=== PATIENT | female | born 1955 | race Caucasian/White ===

== ENCOUNTER → 2017-01-24 | Outpatient (CLI) | payer OTHER ==
[2017-01-27 00:06] LABS: Lyme Disease IgG/IgM Antibodie <0.91 ISR (0.00-0.90); Lyme Disease IgM Ab Quantitati <0.80 index (0.00-0.79)
== END ==
LOC: M WUC 14:35
PROVIDERS: ATTEND Emergency Medicine
DX: M25.50 Pain in unspecified joint (principal)

== ENCOUNTER 2017-07-06 20:21 | Emergency (ER) | payer BC, OTHER ==
[~2017-07-06] VITALS: Ht 160 cm; Wt 116.0 kg
[2017-07-06 20:21] VITALS: BP 67/85
[2017-07-06] MEDS ORDERED: ESTR1CRE EC (20:42)
[2017-07-06] MEDS ORDERED: WELLTAB40 PO (20:42)
[2017-07-06] MEDS ORDERED: [UNRECOGNIZED DRUG - CODE] PO (20:42)
[2017-07-06] MEDS ORDERED: RITU10VLL IV (20:42)
[2017-07-06] MEDS ORDERED: FOLI1TAB4 PO (20:42)
[2017-07-06] MEDS ORDERED: RIZA10TA4 PO (20:42)
[2017-07-06] MEDS ORDERED: HYDR200T3 PO (20:42)
[2017-07-06] MEDS ORDERED: ESTR1MIS EC (20:42)
[2017-07-06] MEDS ORDERED: KEFL500C17 PO (21:30)
[2017-07-06] MEDS ORDERED: CEPHALEXIN 500 MG CAP PO ONE (21:30)
== END 2017-07-06 21:43 | disposition home or self-care (01) ==
LOC: M ED 20:21
DX: R21 Rash and other nonspecific skin eruption (principal); F33.9 Major depressive disorder, recurrent, unspecified; M35.00 Sjogren syndrome, unspecified; Z79.899 Other long term (current) drug therapy

== ENCOUNTER → 2019-03-24 | Outpatient (CLI) | payer BC, OTHER ==
[~2019-03-24] MED LIST: ESTR1CRE EC; ESTR1MIS EC; FOLI1TAB11 PO; HYDR200T3 PO; KEFL500C17 PO; RITU10VLL IV; RIZA10TA4 PO; WELLTAB40 PO; [UNRECOGNIZED DRUG - CODE] PO
[2019-03-24 12:10] LABS: BLOOD UREA NITROGEN 14 MG/DL (7-18); CALCIUM LEVEL 9.5 MG/DL (8.8-10.2); CARBON DIOXIDE LEVEL 29 MEQ/L (21-32); CHLORIDE LEVEL 110 MEQ/L (98-107); CREATININE FOR GFR 0.96 MG/DL (0.55-1.30); GLOMERULAR FILTRATION RATE > 60.0 (>45); GLUCOSE, FASTING 79 MG/DL (70-100); POTASSIUM SERUM 4.9 MEQ/L (3.5-5.1); SODIUM LEVEL 143 MEQ/L (136-145)
== END ==
LOC: M WUC 09:19
PROVIDERS: ATTEND Family Medicine
DX: L70.0 Acne vulgaris (principal)

== ENCOUNTER → 2019-07-17 | Outpatient (REF) | payer OTHER ==
[~2019-07-17] MED LIST changes: -RIZA10TA4 PO; +RIZA10TA58 PO
== END ==
LOC: M LAB REF 12:55
PROVIDERS: ATTEND Family Medicine
DX: N39.0 Urinary tract infection, site not specified (principal)

== ENCOUNTER → 2020-10-12 | Outpatient (CLI) | payer OTHER ==
[~2020-10-12] MED LIST changes: +CLIMDIS TD; +CLOB0.0548 TOP; +REST0.05 OD; +TRET0.0516 EX
== END ==
LOC: M LABSMTC 14:01
PROVIDERS: ATTEND Anesthesiology
DX: Z01.812 Encounter for preprocedural laboratory examination (principal); Z20.828 Contact with and (suspected) exposure to other viral communicable diseases

== ENCOUNTER → 2021-02-27 | Outpatient (CLI) | payer BC, OTHER ==
[2021-02-27 10:19] LABS: BLOOD UREA NITROGEN 13 MG/DL (7-18); CALCIUM LEVEL 9.4 MG/DL (8.8-10.2); CARBON DIOXIDE LEVEL 28 MEQ/L (21-32); CHLORIDE LEVEL 112 MEQ/L (98-107); CHOLESTEROL LEVEL 177 MG/DL (<200); CHOLESTEROL RISK RATIO 2.185 (<5); CREATININE FOR GFR 0.72 MG/DL (0.55-1.30); FREE T4 1.12 NG/DL (0.76-1.46); GLOMERULAR FILTRATION RATE > 60.0 (>45); GLUCOSE, FASTING 81 MG/DL (70-100); HDL CHOLESTEROL 81 MG/DL (>40); LDL CHOLESTEROL 83 MG/DL (<100); NON-HDL-C 96 MG/DL; POTASSIUM SERUM 4.1 MEQ/L (3.5-5.1); SODIUM LEVEL 145 MEQ/L (136-145); TRIGLYCERIDES LEVEL 65 MG/DL (<150)
== END ==
LOC: M WUC 08:24
PROVIDERS: ATTEND Physician Assistant Medical
DX: Z13.220 Encounter for screening for lipoid disorders (principal); Z80.8 Family history of malignant neoplasm of other organs or systems

== ENCOUNTER → 2021-04-06 | Outpatient (CLI) | payer BC, OTHER ==
[2021-04-06 17:18] LABS: BLOOD UREA NITROGEN 12 MG/DL (7-18); CREATININE FOR GFR 0.76 MG/DL (0.55-1.30); GLOMERULAR FILTRATION RATE > 60.0 (>45)
== END ==
LOC: M WUC 11:30
PROVIDERS: ATTEND Obstetrics & Gynecology
DX: Z80.3 Family history of malignant neoplasm of breast (principal)

== ENCOUNTER → 2023-09-12 | Outpatient (REF) | payer MEDICARE, BC, OTHER ==
[~2023-09-12] MED LIST changes: -ESTR1MIS EC; +ESTR1VAG3 EC; -HYDR200T3 PO; +HYDR200T46 PO; +[UNRECOGNIZED DRUG - CODE] PO; -[UNRECOGNIZED DRUG - CODE] PO
[2023-09-12 17:08] LABS: BASO % 0.5 % (0.0-1.0); EOS # 0.2 10^3/uL (0.0-0.5); EOS % 4.7 % (0.0-3.0); HEMATOCRIT 44.5 % (36.0-47.0); HEMOGLOBIN 14.8 g/dl (12.0-15.5); LYMPH # 1.5 10^3/uL (1.5-5.0); LYMPH % 37.5 % (24.0-44.0); MEAN CORPUSCULAR HGB CONC 33.3 g/dl (32.0-36.5); MEAN CORPUSCULAR VOLUME 99.3 fl (80.0-96.0); MONO # 0.4 10^3/uL (0.0-0.8); MONO % 10.3 % (2.0-8.0); NEUTROPHILS # 1.8 10^3/uL (1.5-8.5); NEUTROPHILS % 46.7 % (36.0-66.0); PLATELET COUNT, AUTOMATED 187 10^3/uL (150-450); RED BLOOD COUNT 4.48 10^6/uL (4.00-5.40); WHITE BLOOD COUNT 3.9 10^3/uL (4.0-10.0)
[2023-09-12 17:21] LABS: APPEARANCE, URINE CLEAR (CLEAR); BACTERIA, URINE AUTO NEGATIVE (NEGATIVE); BILIRUBIN, URINE AUTO NEGATIVE (NEGATIVE); BLOOD, URINE BLOOD NEGATIVE (NEGATIVE); COLOR, URINE YELLOW (YELLOW); GLUCOSE, URINE (UA) AUTO NEGATIVE (NEGATIVE); KETONE, URINE AUTO TRACE mg/dL (NEGATIVE); LEUKOCYTE ESTERASE, URINE AUTO NEGATIVE (NEGATIVE); MUCUS, URINE SMALL (NEGATIVE); NITRITE, URINE AUTO NEGATIVE (NEGATIVE); PROTEIN, URINE AUTO NEGATIVE (NEGATIVE); RBC, URINE AUTO 2 /HPF (0-3); SQUAMOUS EPITHELIAL CELL UR AU 2 /HPF (0-6); UROBILINOGEN, URINE AUTO 0.2 mg/dL (0.0-2.0); WBC, URINE AUTO 0 /HPF (0-3)
[2023-09-12 17:28] LABS: ERYTHROCYTE SEDIMENTATION RATE 20 mm/hr (0-30)
[2023-09-12 17:29] LABS: C REACTIVE PROTEIN QUANTITATIV < 0.40 MG/DL (<1.0)
[2023-09-12 17:30] LABS: ALBUMIN 4.2 G/DL (3.2-5.2); ALKALINE PHOSPHATASE 64 U/L (46-116); ALT/SGPT 53 U/L (7.0-40); AST/SGOT 38 U/L (<34); BILIRUBIN,TOTAL 0.4 MG/DL (0.3-1.2); BLOOD UREA NITROGEN 12 MG/DL (9-23); CALCIUM LEVEL 9.6 MG/DL (8.3-10.6); CARBON DIOXIDE LEVEL 28 MMOL/L (20-31); CHLORIDE LEVEL 107 MMOL/L (98-107); CREATININE,RANDOM URINE 102.1 MG/DL; GLOMERULAR FILTRATION RATE > 60.0 (>45); GLUCOSE, FASTING 76 MG/DL (74-106); SODIUM LEVEL 143 MMOL/L (136-145); TOTAL PROTEIN 7.1 G/DL (5.7-8.2)
[2023-09-12 17:31] LABS: COMPLEMENT C4 22.1 MG/DL (12-36); IMMUNOGLOBULIN A 99.7 MG/DL (40-350); IMMUNOGLOBULIN G 1130 MG/DL (650-1600)
[2023-09-16 19:07] LABS: COMPLEMENT TOTAL (CH50) > 60 U/mL (>41)
== END ==
LOC: M SFHCRHEU 13:08
PROVIDERS: ATTEND Internal Medicine Rheumatology
DX: M35.00 Sjogren syndrome, unspecified (principal); Z79.899 Other long term (current) drug therapy; I73.00 Raynaud's syndrome without gangrene; R76.8 Other specified abnormal immunological findings in serum; R76.0 Raised antibody titer; M19.049 Primary osteoarthritis, unspecified hand

== ENCOUNTER → 2023-10-07 | Outpatient (CLI) | payer MEDICARE, BC, OTHER | LOC: M CARPUL 10:38 | PROVIDERS: ATTEND Internal Medicine Rheumatology | DX: M35.00 Sjogren syndrome, unspecified (principal); Z79.899 Other long term (current) drug therapy; I73.00 Raynaud's syndrome without gangrene; R76.8 Other specified abnormal immunological findings in serum; M19.049 Primary osteoarthritis, unspecified hand; R76.0 Raised antibody titer ==

== ENCOUNTER → 2023-10-07 | Outpatient (CLI) | payer MEDICARE, BC, OTHER | LOC: M RAD 10:34 | PROVIDERS: ATTEND Internal Medicine Rheumatology | DX: M35.00 Sjogren syndrome, unspecified (principal); Z79.899 Other long term (current) drug therapy; I73.00 Raynaud's syndrome without gangrene; R76.8 Other specified abnormal immunological findings in serum; M19.049 Primary osteoarthritis, unspecified hand; R91.1 Solitary pulmonary nodule; D17.21 Benign lipomatous neoplasm of skin and subcutaneous tissue of right arm; R76.0 Raised antibody titer ==

== ENCOUNTER → 2023-12-17 | Outpatient (REF) | payer MEDICARE, BC, OTHER | LOC: M SFHCRHEU 11:07 | PROVIDERS: ATTEND Internal Medicine Rheumatology | DX: M35.00 Sjogren syndrome, unspecified (principal); Z79.899 Other long term (current) drug therapy; I73.00 Raynaud's syndrome without gangrene; R76.8 Other specified abnormal immunological findings in serum; R76.0 Raised antibody titer; M19.049 Primary osteoarthritis, unspecified hand ==

== ENCOUNTER → 2023-12-26 | Outpatient (CLI) | payer MEDICARE, BC, OTHER | LOC: M SOG 07:55 | PROVIDERS: ATTEND Physician Assistant | DX: M79.645 Pain in left finger(s) (principal); M79.644 Pain in right finger(s); M18.0 Bilateral primary osteoarthritis of first carpometacarpal joints ==

== ENCOUNTER → 2024-02-19 | Outpatient (CLI) | payer MEDICARE, BC, OTHER ==
[2024-02-19 17:15] LABS: APPEARANCE, URINE CLEAR (CLEAR); BACTERIA, URINE AUTO 1+ (NEGATIVE); BILIRUBIN, URINE AUTO NEGATIVE (NEGATIVE); BLOOD, URINE BLOOD NEGATIVE (NEGATIVE); COLOR, URINE YELLOW (YELLOW); GLUCOSE, URINE (UA) AUTO NEGATIVE (NEGATIVE); KETONE, URINE AUTO NEGATIVE (NEGATIVE); LEUKOCYTE ESTERASE, URINE AUTO NEGATIVE (NEGATIVE); NITRITE, URINE AUTO NEGATIVE (NEGATIVE); PROTEIN, URINE AUTO NEGATIVE (NEGATIVE); RBC, URINE AUTO 1 /HPF (0-3); SPECIFIC GRAVITY URINE AUTO 1.011 (1.002-1.035); SQUAMOUS EPITHELIAL CELL UR AU 1 /HPF (0-6); UROBILINOGEN, URINE AUTO 0.2 mg/dL (0.0-2.0); WBC, URINE AUTO 0 /HPF (0-3)
[2024-02-19 17:19] LABS: BASO % 0.6 % (0.0-1.0); EOS # 0.1 10^3/uL (0.0-0.5); EOS % 2.7 % (0.0-3.0); HEMATOCRIT 45.2 % (36.0-47.0); LYMPH # 1.8 10^3/uL (1.5-5.0); MEAN CORPUSCULAR HEMOGLOBIN 32.5 pg (27.0-33.0); MEAN CORPUSCULAR HGB CONC 33.2 g/dl (32.0-36.5); MONO # 0.5 10^3/uL (0.0-0.8); MONO % 11.3 % (2.0-8.0); NEUTROPHILS # 2.2 10^3/uL (1.5-8.5); NEUTROPHILS % 47.2 % (36.0-66.0); PLATELET COUNT, AUTOMATED 200 10^3/uL (150-450); RED BLOOD COUNT 4.61 10^6/uL (4.00-5.40); WHITE BLOOD COUNT 4.8 10^3/uL (4.0-10.0)
[2024-02-19 17:22] LABS: C REACTIVE PROTEIN QUANTITATIV < 0.40 MG/DL (<1.0)
[2024-02-19 17:24] LABS: ALBUMIN 4.4 G/DL (3.2-5.2); ALKALINE PHOSPHATASE 66 U/L (46-116); ALT/SGPT 53 U/L (7.0-40); AST/SGOT 36 U/L (<34); BILIRUBIN,TOTAL 0.5 MG/DL (0.3-1.2); BLOOD UREA NITROGEN 13 MG/DL (9-23); CALCIUM LEVEL 9.6 MG/DL (8.3-10.6); CARBON DIOXIDE LEVEL 29 MMOL/L (20-31); CHLORIDE LEVEL 104 MMOL/L (98-107); CREATININE FOR GFR 0.87 MG/DL (0.55-1.30); GLOMERULAR FILTRATION RATE > 60.0 (>45); GLUCOSE, FASTING 88 MG/DL (74-106); POTASSIUM SERUM 3.8 MMOL/L (3.5-5.1); SODIUM LEVEL 141 MMOL/L (136-145); TOTAL PROTEIN 7.3 G/DL (5.7-8.2)
[2024-02-19 17:25] LABS: COMPLEMENT C3 112.2 MG/DL (90.0-170.0); COMPLEMENT C4 19.5 MG/DL (12-36)
[2024-02-19 17:35] LABS: TOTAL PROTEIN,RANDOM URINE 6.9 MG/DL (0.0-14.0)
[2024-02-19 17:40] LABS: CREATININE,RANDOM URINE 56.7 MG/DL
[2024-02-19 17:41] LABS: ERYTHROCYTE SEDIMENTATION RATE 21 mm/hr (0-30)
== END ==
LOC: M WUC 10:38
PROVIDERS: ATTEND Internal Medicine Rheumatology
DX: M35.00 Sjogren syndrome, unspecified (principal); Z79.899 Other long term (current) drug therapy; R76.0 Raised antibody titer

== ENCOUNTER → 2024-04-07 | Outpatient (CLI) | payer MEDICARE, BC, OTHER ==
[~2024-04-07] MED LIST changes: +MINO1TAB PO; -[UNRECOGNIZED DRUG - CODE] PO
== END ==
LOC: M RAD 08:23
PROVIDERS: ATTEND Internal Medicine Gastroenterology
DX: N28.1 Cyst of kidney, acquired (principal); R94.5 Abnormal results of liver function studies

== ENCOUNTER → 2024-09-24 | Outpatient (CLI) | payer MEDICARE, BC, OTHER ==
[2024-09-24 09:55] LABS: APPEARANCE, URINE CLEAR (CLEAR); BACTERIA, URINE AUTO NEGATIVE (NEGATIVE); BILIRUBIN, URINE AUTO NEGATIVE (NEGATIVE); BLOOD, URINE BLOOD NEGATIVE (NEGATIVE); COLOR, URINE STRAW (YELLOW); GLUCOSE, URINE (UA) AUTO NEGATIVE (NEGATIVE); KETONE, URINE AUTO NEGATIVE (NEGATIVE); LEUKOCYTE ESTERASE, URINE AUTO NEGATIVE (NEGATIVE); NITRITE, URINE AUTO NEGATIVE (NEGATIVE); PROTEIN, URINE AUTO NEGATIVE (NEGATIVE); RBC, URINE AUTO 0 /HPF (0-3); SPECIFIC GRAVITY URINE AUTO 1.003 (1.002-1.035); SQUAMOUS EPITHELIAL CELL UR AU 0 /HPF (0-6); UROBILINOGEN, URINE AUTO 0.2 mg/dL (0.0-2.0); WBC, URINE AUTO 0 /HPF (0-3)
[2024-09-24 10:06] LABS: BASO % 0.5 % (0.0-1.0); EOS # 0.1 10^3/uL (0.0-0.5); EOS % 3.1 % (0.0-3.0); HEMATOCRIT 44.6 % (36.0-47.0); LYMPH # 1.9 10^3/uL (1.5-5.0); LYMPH % 44.7 % (24.0-44.0); MEAN CORPUSCULAR HGB CONC 33.6 g/dl (32.0-36.5); MEAN CORPUSCULAR VOLUME 98.2 fl (80.0-96.0); MONO # 0.5 10^3/uL (0.0-0.8); MONO % 11.2 % (2.0-8.0); NEUTROPHILS # 1.7 10^3/uL (1.5-8.5); NEUTROPHILS % 40.3 % (36.0-66.0); PLATELET COUNT, AUTOMATED 175 10^3/uL (150-450); RED BLOOD COUNT 4.54 10^6/uL (4.00-5.40); WHITE BLOOD COUNT 4.2 10^3/uL (4.0-10.0)
[2024-09-24 10:22] LABS: ERYTHROCYTE SEDIMENTATION RATE 11 mm/hr (0-30)
[2024-09-24 10:25] LABS: CREATININE,RANDOM URINE 17.1 MG/DL
[2024-09-24 10:26] LABS: C REACTIVE PROTEIN QUANTITATIV < 0.40 MG/DL (<1.0); TOTAL PROTEIN,RANDOM URINE < 6.0 MG/DL (0.0-14.0)
[2024-09-24 10:28] LABS: ALBUMIN 3.9 G/DL (3.2-5.2); ALKALINE PHOSPHATASE 57 U/L (35-104); ALT/SGPT 56 U/L (7.0-40); AST/SGOT 36 U/L (<34); BILIRUBIN,TOTAL 0.4 MG/DL (0.3-1.2); BLOOD UREA NITROGEN 13 MG/DL (9-23); CALCIUM LEVEL 10.1 MG/DL (8.3-10.6); CARBON DIOXIDE LEVEL 29 MMOL/L (20-31); CHLORIDE LEVEL 107 MMOL/L (98-107); COMPLEMENT C3 114.3 MG/DL (90.0-170.0); COMPLEMENT C4 19.4 MG/DL (12-36); CREATININE FOR GFR 0.84 MG/DL (0.55-1.30); GLOMERULAR FILTRATION RATE > 60.0 (>45); GLUCOSE, FASTING 78 MG/DL (74-106); IMMUNOGLOBULIN G 1083 MG/DL (650-1600); POTASSIUM SERUM 3.9 MMOL/L (3.5-5.1); SODIUM LEVEL 142 MMOL/L (136-145); TOTAL PROTEIN 7.2 G/DL (5.7-8.2)
[2024-09-25 10:03] LABS: PROTEIN, TOTAL SO 7.2 g/dL (6.1-8.1)
[2024-09-25 13:59] LABS: CRYOGLOBULINS NEGATIVE (NEGATIVE)
[2024-09-28 17:27] LABS: COMPLEMENT TOTAL (CH50) > 60 U/mL (31-60)
== END ==
LOC: M RAD 09:01
PROVIDERS: ATTEND Internal Medicine Rheumatology
DX: M35.00 Sjogren syndrome, unspecified (principal); I73.00 Raynaud's syndrome without gangrene; M19.049 Primary osteoarthritis, unspecified hand; R76.8 Other specified abnormal immunological findings in serum; R76.0 Raised antibody titer; Z79.899 Other long term (current) drug therapy

== ENCOUNTER → 2025-01-11 | Outpatient (CLI) | payer MEDICARE, BC, OTHER ==
[2025-01-11 16:26] LABS: APPEARANCE, URINE CLEAR (CLEAR); BACTERIA, URINE AUTO 1+ (NEGATIVE); BILIRUBIN, URINE AUTO NEGATIVE (NEGATIVE); BLOOD, URINE BLOOD NEGATIVE (NEGATIVE); COLOR, URINE STRAW (YELLOW); GLUCOSE, URINE (UA) AUTO NEGATIVE (NEGATIVE); KETONE, URINE AUTO NEGATIVE (NEGATIVE); LEUKOCYTE ESTERASE, URINE AUTO NEGATIVE (NEGATIVE); MUCUS, URINE SMALL (NEGATIVE); NITRITE, URINE AUTO NEGATIVE (NEGATIVE); PROTEIN, URINE AUTO NEGATIVE (NEGATIVE); RBC, URINE AUTO 1 /HPF (0-3); SPECIFIC GRAVITY URINE AUTO 1.004 (1.002-1.035); SQUAMOUS EPITHELIAL CELL UR AU 2 /HPF (0-6); UROBILINOGEN, URINE AUTO 0.2 mg/dL (0.0-2.0); WBC, URINE AUTO 0 /HPF (0-3)
[2025-01-11 16:28] LABS: BASO % 0.5 % (0.0-1.0); EOS # 0.1 10^3/uL (0.0-0.5); EOS % 1.5 % (0.0-3.0); HEMATOCRIT 42.4 % (36.0-47.0); HEMOGLOBIN 14.1 g/dl (12.0-15.5); LYMPH # 2.2 10^3/uL (1.5-5.0); LYMPH % 35.2 % (24.0-44.0); MEAN CORPUSCULAR HEMOGLOBIN 33.1 pg (27.0-33.0); MEAN CORPUSCULAR HGB CONC 33.3 g/dl (32.0-36.5); MEAN CORPUSCULAR VOLUME 99.5 fl (80.0-96.0); MONO # 0.7 10^3/uL (0.0-0.8); MONO % 11.6 % (2.0-8.0); NEUTROPHILS # 3.1 10^3/uL (1.5-8.5); NEUTROPHILS % 50.9 % (36.0-66.0); PLATELET COUNT, AUTOMATED 188 10^3/uL (150-450); RED BLOOD COUNT 4.26 10^6/uL (4.00-5.40); WHITE BLOOD COUNT 6.1 10^3/uL (4.0-10.0)
[2025-01-11 16:47] LABS: CREATININE,RANDOM URINE 16.4 MG/DL
[2025-01-11 16:48] LABS: ALBUMIN 3.8 G/DL (3.2-5.2); ALKALINE PHOSPHATASE 51 U/L (35-104); ALT/SGPT 52 U/L (7.0-40); AST/SGOT 39 U/L (<34); BILIRUBIN,TOTAL 0.4 MG/DL (0.3-1.2); BLOOD UREA NITROGEN 12 MG/DL (9-23); C REACTIVE PROTEIN QUANTITATIV < 0.50 MG/DL (<1.0); CALCIUM LEVEL 9.6 MG/DL (8.3-10.6); CARBON DIOXIDE LEVEL 30 MMOL/L (20-31); CHLORIDE LEVEL 106 MMOL/L (98-107); COMPLEMENT C3 114.8 MG/DL (90.0-170.0); COMPLEMENT C4 18.2 MG/DL (12-36); CREATININE FOR GFR 0.86 MG/DL (0.55-1.30); GLOMERULAR FILTRATION RATE > 60.0 (>45); GLUCOSE, FASTING 88 MG/DL (74-106); POTASSIUM SERUM 3.7 MMOL/L (3.5-5.1); SODIUM LEVEL 143 MMOL/L (136-145); TOTAL PROTEIN 6.9 G/DL (5.7-8.2)
[2025-01-11 16:49] LABS: TOTAL PROTEIN,RANDOM URINE < 6.0 MG/DL (0.0-14.0)
[2025-01-11 19:28] LABS: ERYTHROCYTE SEDIMENTATION RATE 12 mm/hr (0-30)
== END ==
LOC: M WUC 11:33
PROVIDERS: ATTEND Internal Medicine Rheumatology
DX: M35.00 Sjogren syndrome, unspecified (principal); Z79.899 Other long term (current) drug therapy; I73.00 Raynaud's syndrome without gangrene; R76.0 Raised antibody titer; M19.049 Primary osteoarthritis, unspecified hand